=== PATIENT | male | born 1940 | race Caucasian/White ===

== ENCOUNTER 2020-04-28 08:56 | Observation (INO) ==
[2020-04-28] MEDS ORDERED: Aspirin 81 MG TAB.CHEW PO ONE (09:05)
[2020-04-28] MEDS ORDERED: Nitroglycerin 1 INCH/GM PACKET TP ONE (09:05)
[2020-04-28 09:27] LABS: Basophils % 0.4 %; Eosinophils # 0.2 K/mcL (0.0-0.6); Eosinophils % 2.8 %; Hematocrit 38.4 % (37.5-50.1); Hemoglobin 12.6 g/dL (12.9-16.9); Immature Granulocytes % 0.4 % (0-4); Lymphocytes # 0.8 K/mcL (0.6-4.6); Lymphocytes % 14.4 %; Mean Corpuscular HGB Conc 32.8 g/dL (31.6-35.5); Mean Corpuscular Hemoglobin 33.9 pg (28.0-33.3); Mean Corpuscular Volume 103.2 fL (83.0-100.0); Mean Platelet Volume 10.2 fL (9.4-12.4); Monocytes # 0.5 K/mcL (0.0-1.3); Monocytes % 8.5 %; Neutrophils # 4.1 K/mcL (1.6-8.9); Platelet Count 166 K/mcL (140-400); Red Blood Count 3.72 M/mcL (4.19-5.50); Red Cell Distribution Width 13.4 % (11.5-14.5); Segmented Neutrophils % 73.5 %; White Blood Count 5.6 K/mcL (4.3-11.1)
[2020-04-28 09:34] LABS: INR 2.5; Prothrombin Time 27.8 Seconds (9.4-12.1)
[2020-04-28 09:37] LABS: Activated Partial Thrombo Time 36.1 Seconds (26.0-36.0)
[2020-04-28 09:43] LABS: BUN/Creatinine Ratio 25 (6-26); Blood Urea Nitrogen 24 mg/dL (8-23); Calcium 8.4 mg/dL (8.6-10.3); Carbon Dioxide 37 mEq/L (23-29); Chloride 98 mEq/L (98-107); Glucose 97 mg/dL (70-105); Osmolality,Calculated 290 (280-300); Potassium 3.9 mEq/L (3.5-5.1); Sodium 138 mEq/L (136-145); eGFR For African Americans > 60 (> 60); eGFR For Non-African Americans > 60 (> 60)
[2020-04-28 09:46] LABS: Troponin I < 0.03 ng/mL (< 0.04)
[2020-04-28 12:35] LABS: Adenovirus Not Detected (Not Detect); Bordetella Pertussis Not Detected (Not Detect); Chlamydophila pneumoniae Not Detected (Not Detect); Coronavirus 229E Not Detected (Not Detect); Coronavirus HKU1 Not Detected (Not Detect); Coronavirus NL63 Not Detected (Not Detect); Coronavirus OC43 Not Detected (Not Detect); Human Metapneumovirus Not Detected (Not Detect); Human Rhinovirus/Enterovirus Not Detected (Not Detect); Influenza A Subtype 2009 H1 Not Detected (Not Detect); Influenza B Not Detected (Not Detect); Mycoplasma pneumoniae Not Detected (Not Detect); Parainfluenza Virus 1 Not Detected (Not Detect); Parainfluenza Virus 2 Not Detected (Not Detect); Parainfluenza Virus 3 Not Detected (Not Detect); Parainfluenza Virus 4 Not Detected (Not Detect); Respiratory Syncytial Virus Not Detected (Not Detect); SARS-CoV-2 Not Detected (Not Detect)
[2020-04-28] MEDS ORDERED: Naloxone 0.4 MG/ML INJ IVP PRN (14:09)
[2020-04-28] MEDS ORDERED: cefTRIAXone 1,000 MG in 0.9 % Sodium Chloride Mini Bag 100 ML IVPB SCH (16:00)
[2020-04-28] MEDS: methylPREDNISolone 125 MG/2 ML VIAL IVP SCH ×2 (16:28→17:09)
[2020-04-28] MEDS: Ipratropium/Albuterol Neb 3 ML IH PRN (16:56)
[2020-04-28] MEDS ORDERED: methylPREDNISolone 125 MG/2 ML VIAL IVP SCH ×2 (18:00)
[2020-04-28] MEDS ORDERED: *HR* Warfarin 7.5 MG TABLET PO SCH (18:00)
[2020-04-28] MEDS ORDERED: Isovue-370 500 ML BOTTLE IVP ONE (19:31)
[2020-04-28] MEDS: Budesonide/Formoterol 160/4.5 1 PUFF INH IH SCH (22:05)
[2020-04-29 01:21] LABS: Hematocrit 34.8 % (37.5-50.1); Hemoglobin 11.7 g/dL (12.9-16.9); Immature Granulocytes % 0.2 % (0-4); Lymphocytes # 0.2 K/mcL (0.6-4.6); Lymphocytes % 5.6 %; Mean Corpuscular HGB Conc 33.6 g/dL (31.6-35.5); Mean Corpuscular Hemoglobin 33.9 pg (28.0-33.3); Mean Corpuscular Volume 100.9 fL (83.0-100.0); Mean Platelet Volume 10.4 fL (9.4-12.4); Monocytes # 0.1 K/mcL (0.0-1.3); Monocytes % 1.9 %; Platelet Count 159 K/mcL (140-400); Red Blood Count 3.45 M/mcL (4.19-5.50); Red Cell Distribution Width 13.2 % (11.5-14.5); Segmented Neutrophils % 92.3 %; White Blood Count 4.3 K/mcL (4.3-11.1)
[2020-04-29 01:37] LABS: BUN/Creatinine Ratio 23 (6-26); Blood Urea Nitrogen 26 mg/dL (8-23); Calcium 8.2 mg/dL (8.6-10.3); Carbon Dioxide 34 mEq/L (23-29); Chloride 96 mEq/L (98-107); Glucose 167 mg/dL (70-105); Osmolality,Calculated 291 (280-300); Sodium 136 mEq/L (136-145); eGFR For African Americans > 60 (> 60); eGFR For Non-African Americans > 60 (> 60)
[2020-04-29] MEDS: methylPREDNISolone 125 MG/2 ML VIAL IVP SCH (05:22)
[2020-04-29] MEDS: Budesonide/Formoterol 160/4.5 1 PUFF INH IH SCH (06:35)
[2020-04-29] MEDS: Ipratropium/Albuterol Neb 3 ML IH PRN ×2 (06:36→11:21)
[2020-04-29] MEDS ORDERED: Cholecalciferol (D-3) 1,000 UNIT (25MCG) TABLET PO SCH (09:00)
[2020-04-29] MEDS ORDERED: Furosemide 20 MG TABLET PO SCH (09:00)
[2020-04-29] MEDS ORDERED: DOXYCYCLINE ORAL SUSPENSION 100 MG/10 ML UDC PO SCH (09:00)
[2020-04-29] MEDS ORDERED: Sennosides 8.6 MG TABLET PO SCH (09:00)
[2020-04-29] MEDS ORDERED: Doxycycline 100 MG CAPSULE PO SCH (09:00)
[2020-04-29] MEDS ORDERED: Aspirin Enteric Coated 81 MG Tablet PO SCH (09:00)
[2020-04-29 11:18] LABS: Bilirubin,Urine Negative (Negative); Blood,Urine Trace-lysed (Negative); Clarity,Urine Clear (Clear); Color,Urine Yellow (Yellow); Glucose,Urine (UA) Normal (Normal); Ketones,Urine Negative (Negative); Leukocyte Esterase,Urine Negative (Negative); Nitrite,Urine Negative (Negative); Protein,Urine 30 mg/dL (Neg-Trace); Specific Gravity,Urine 1.025 (1.010-1.025); Urobilinogen,Urine Normal (Normal)
[2020-04-29 11:26] LABS: RBC,Urine 0-3 per hpf (0-3); WBC,Urine 0-3 per hpf (0-3)
[2020-04-29 11:43] VITALS: BP 174/95
[2020-04-29] MEDS ORDERED: cefTRIAXone 1,000 MG in 0.9 % Sodium Chloride Mini Bag 100 ML IVPB SCH (13:48)
[2020-04-29] MEDS ORDERED: *HR* Warfarin 5 MG TABLET PO SCH (18:00)
== END 2020-04-29 14:57 | disposition home or self-care (01) ==
LOC: INPGRE 08:56 → EMEROOGRE 08:56 → INPGRE 13:47
PROVIDERS: ADMIT Family Medicine; ATTEND Family Medicine